=== PATIENT | female | born 1975 ===

== ENCOUNTER 2022-05-13 05:48 | Day surgery (SDC) | payer OTHER ==
[~2022-05-13] VITALS: Ht 167.6 cm; Wt 77.1 kg
[2022-05-13] MEDS ORDERED: PERCOCET 5-3251 EACH PO (09:44)
== END 2022-05-13 13:30 | disposition home or self-care (01) ==
LOC: CIR.AMB 05:48
PROVIDERS: ATTEND Surgery
DX: K62.89 Other specified diseases of anus and rectum (principal); K60.1 Chronic anal fissure; Z20.822 Contact with and (suspected) exposure to COVID-19; K62.0 Anal polyp; K62.1 Rectal polyp; K64.8 Other hemorrhoids